=== PATIENT | male | born 1960 | race African-American/Black ===

== ENCOUNTER 2017-12-09 09:37 | Emergency (ER) | payer SELFPAY ==
[~2017-12-09] VITALS: Ht 182.9 cm; Wt 59.0 kg
[2017-12-09 15:31] VITALS: BP 115/85
== END 2017-12-09 15:45 | disposition home or self-care (01) ==
LOC: ER 11:38
DX: S09.8XXA Other specified injuries of head, initial encounter (principal); E11.9 Type 2 diabetes mellitus without complications; Z87.891 Personal history of nicotine dependence; W01.0XXA Fall on same level from slipping, tripping and stumbling without subsequent striking against object, initial encounter; Y93.89 Activity, other specified; Y92.018 Other place in single-family (private) house as the place of occurrence of the external cause
CPT/HCPCS: 70450; 99284; Z7610